=== PATIENT | male | born 1970 | race Caucasian/White ===

== ENCOUNTER 2017-10-24 11:43 | Emergency (ER) | payer BC ==
[~2017-10-24] VITALS: Ht 177.8 cm; Wt 96.9 kg
[~2017-10-24 11:43] MED LIST: NOHOMEMEDS
[2017-10-24 12:37] LABS: HEMATOCRIT 44.5 % (38.0-50.0); HEMOGLOBIN 14.9 G/DL (12.5-16.6); MCH 30.6 PG (29.0-34.0); MCHC 33.5 G/DL (30.0-36.0); MCV 91.4 FL (86-99); PLATELET COUNT 333 K/uL (156-360); RBC DIS.WIDTH-CV 13.1 % (11.8-14.6); RBC DIS.WIDTH-SD 44.2 % (39-53); RED BLOOD COUNT 4.87 M/uL (4.00-5.50); WHITE BLOOD COUNT 5.6 K/uL (4.1-10.2)
[2017-10-24 12:46] LABS: CHLORIDE 108 mEq/L (99-109); SODIUM 141 mEq/L (136-147)
[2017-10-24 12:48] LABS: GLUCOSE 97 mg/dL (70-99)
[2017-10-24 12:52] LABS: CREATININE 0.8 mg/dL (0.6-1.3); GFR ESTIMATE (CALCULATED) > 59 mL/min/ (58.99-99999)
[2017-10-24 12:53] LABS: UREA NITROGEN (BUN) 16 mg/dL (9-23)
[2017-10-24 12:57] LABS: TROP-I INTERPRETATION NEGATIVE; TROPONIN-I < 0.01 ng/mL (0.0-0.30)
[2017-10-24 15:44] LABS: D-DIMER ELISA < 150.00 ng/mLDDU (<230)
[2017-10-24 15:54] LABS: TROP-I INTERPRETATION NEGATIVE; TROPONIN-I < 0.01 ng/mL (0.0-0.30)
[2017-10-24] MEDS ORDERED: NAPROSYN500 MG PO (16:15)
[2017-10-24 16:31] VITALS: BP 121/77
== END 2017-10-24 16:34 | disposition home or self-care (01) ==
LOC: EME 11:43
PROVIDERS: Nurse Practitioner Family
DX: R07.89 Other chest pain (principal); Z83.3 Family history of diabetes mellitus; Z82.49 Family history of ischemic heart disease and other diseases of the circulatory system
CPT/HCPCS: 71046; 80048; 84484; 85027; 85379; 93005; 99281; 99285